=== PATIENT | female | born 1990 | race Caucasian/White ===

== ENCOUNTER → 2016-09-11 | Outpatient (CLI) | payer BC | END | disposition home or self-care (01) | LOC: C.LAB1850 07:37 | PROVIDERS: ATTEND Obstetrics & Gynecology | DX: E03.9 Hypothyroidism, unspecified (principal) ==

== ENCOUNTER → 2017-03-28 | Outpatient (CLI) | payer BC | END | disposition home or self-care (01) | LOC: C.LAB1850 07:30 | PROVIDERS: ATTEND Obstetrics & Gynecology | DX: E03.9 Hypothyroidism, unspecified (principal); N92.6 Irregular menstruation, unspecified ==

== ENCOUNTER → 2017-07-18 | Outpatient (CLI) | payer BC ==
[2017-07-18 11:36] LABS: URINE APPEARANCE CLEAR (CLEAR); URINE BILIRUBIN NEG (NEG); URINE COLOR YELLOW; URINE NITRITE NEG (NEG); URINE PH 7.5 (4.5-7.5); URINE SPECIFIC GRAVITY 1.008 (1.000-1.030); UROBILINOGEN NEG (NEG)
[2017-07-18 11:38] LABS: MANUAL MICROSCOPIC REQUIRED? NO; REVIEW REQ? NO
== END | disposition home or self-care (01) ==
LOC: C.LABSPEC 11:04
PROVIDERS: ATTEND Obstetrics & Gynecology
DX: Z34.01 Encounter for supervision of normal first pregnancy, first trimester (principal)

== ENCOUNTER → 2017-07-22 | Outpatient (CLI) | payer BC ==
[2017-07-22 16:41] LABS: BASO % 0.4 %; BASO ABS # 0.04 K/uL (0-0.2); COMPLETE YES; EOS % 1.1 %; HEMATOCRIT 37.1 % (37-47); IG% 0.2 %; LYMPH % 26.4 %; LYMPH ABS # 2.86 K/uL (1.2-3.4); MEAN CELL VOLUME 88.1 fL (80-100); MEAN CORPUSCULAR HEMOGLOBIN 31.6 pg (25-34); MEAN CORPUSCULAR HGB CONC 35.8 g/dl (32-36); MEAN PLATELET VOLUME 9.7 fL (7.4-10.4); MONO % 6.4 %; NEUT % 65.5 %; PLATELET COUNT 343 K/uL (130-400); RED BLOOD COUNT 4.21 M/uL (4.2-5.4); WHITE BLOOD COUNT 10.85 K/uL (4.8-10.8)
[2017-07-25 03:08] LABS: CHLAMYDIA TRACH RNA*** NOT DETECTED (NOT DETECTED); GC (NEIS GONORRHOEAE)RNA** NOT DETECTED (NOT DETECTED)
== END | disposition home or self-care (01) ==
LOC: C.LAB1850 15:25
PROVIDERS: ATTEND Obstetrics & Gynecology
DX: Z34.01 Encounter for supervision of normal first pregnancy, first trimester (principal); E03.9 Hypothyroidism, unspecified

== ENCOUNTER → 2017-08-14 | Outpatient (CLI) | payer OTHER | END | disposition home or self-care (01) | LOC: C.LAB1850 16:14 | PROVIDERS: ATTEND Physician Assistant | DX: E03.9 Hypothyroidism, unspecified (principal) ==

== ENCOUNTER → 2017-11-28 | Outpatient (CLI) | payer OTHER | END | disposition home or self-care (01) | LOC: C.LAB1850 13:56 | PROVIDERS: ATTEND Physician Assistant | DX: E03.9 Hypothyroidism, unspecified (principal) ==

== ENCOUNTER → 2017-12-18 | Outpatient (CLI) | payer OTHER ==
[2017-12-18 15:51] LABS: HEMATOCRIT 30.1 % (37-47); HEMOGLOBIN 10.4 g/dL (12.0-16.0)
== END | disposition home or self-care (01) ==
LOC: C.LAB1850 13:54
PROVIDERS: ATTEND Obstetrics & Gynecology
DX: Z34.03 Encounter for supervision of normal first pregnancy, third trimester (principal)

== ENCOUNTER 2018-03-05 00:11 | Inpatient (IN) | payer OTHER ==
[~2018-03-05] VITALS: Ht 160 cm; Wt 82.3 kg
[2018-03-05] MEDS ORDERED: LACTATED RINGER'S 1000ML 1,000 ML IV PRN (08:06)
[2018-03-05] MEDS ORDERED: LACTATED RINGER'S 1000ML 500 ML IV PRN ×2 (08:07→14:35)
[2018-03-05] MEDS ORDERED: OXYTOCIN 30 UNITS/500ML NSS IV PRN (08:15)
[2018-03-05 08:27] LABS: HEMATOCRIT 30.1 % (37-47); MEAN CELL VOLUME 83.6 fL (80-100); MEAN CORPUSCULAR HEMOGLOBIN 27.8 pg (25-34); MEAN CORPUSCULAR HGB CONC 33.2 g/dl (32-36); MEAN PLATELET VOLUME 9.7 fL (7.4-10.4); PLATELET COUNT 390 K/uL (130-400); RED CELL DISTRIBUTION WIDTH CV 13.4 % (11.5-14.5); RED CELL DISTRIBUTION WIDTH SD 40.9 fL (36.4-46.3); WHITE BLOOD COUNT 15.23 K/uL (4.8-10.8)
[2018-03-05] MEDS: LACTATED RINGER'S 1000ML 1,000 ML IV SCH ×3 (08:34→22:17)
[2018-03-05] MEDS ORDERED: LEVO100T PO (09:09)
[2018-03-05] MEDS ORDERED: PREN-63 (09:09)
[2018-03-05 09:15] VITALS: Ht 160 cm; Wt 82.3 kg
[2018-03-05] MEDS ORDERED: BUPIVACAINE 0.25% 30 ML VIAL ONE (13:09)
[2018-03-05] MEDS ORDERED: EpHEDrine SULFATE INJ 50 MG/ML AMP ONE (13:09)
[2018-03-05] MEDS ORDERED: FENTANYL 2MCG/ML ROPIV 1.25MG/ML 100ML BAG ONE (13:11)
[2018-03-05] MEDS ORDERED: FENTANYL CITRATE INJ 50 MCG/1 ML 2 ML VIAL ONE (13:11)
[2018-03-05] MEDS ORDERED: NALOXONE HCL INJ 1 MG in SODIUM CHLORIDE 0.9% 1000ML 1,000 ML IV PRN (14:35)
[2018-03-05] MEDS ORDERED: EpHEDrine SULFATE INJ 50 MG/ML AMP IV PRN (14:45)
[2018-03-05] MEDS ORDERED: DiphenhydrAMINE HCL 50 MG/ML VIAL IV PRN (14:45)
[2018-03-05] MEDS ORDERED: PROMETHAZINE HCL INJ 6.25 MG in SODIUM CHLORIDE 0.9% 50ML 50 ML IV PRN (14:45)
[2018-03-05] MEDS ORDERED: FENTANYL 2MCG/ML ROPIV 1.25MG/ML 100ML BAG EPI PRN (14:45)
[2018-03-05] MEDS ORDERED: ONDANSETRON INJ 2 MG/ML 2 ML VIAL IV PRN (14:45)
[2018-03-05] MEDS ORDERED: NALBUPHINE HCL INJ 10 MG/ML 1ML AMP IV PRN (14:45)
[2018-03-05] MEDS ORDERED: NALOXONE HCL INJ 0.4 MG/1 ML VIAL/CARP IV PRN (14:45)
[2018-03-05] MEDS ORDERED: LACTATED RINGER'S 1000ML 1,000 ML IV ONE (20:45)
[2018-03-05] MEDS ORDERED: CITRIC ACID/SODIUM CITRATE 15 ML UDC PO ONE (20:45)
[2018-03-05] MEDS ORDERED: CEFAZOLIN IV 2,000 MG in SYRINGE 0 ML IV SCH (21:00)
[2018-03-05] MEDS: OXYTOCIN INJ 20 UNITS in LACTATED RINGER'S 1000ML 1,000 ML IV SCH (22:17)
--- NOTE | 2018-03-05 22:18 | [facility] Post Operative Brief Note ---
Immediate Operative Summary Operative Date Mar 05, 2018. Pre-Operative Diagnosis 1. Gestational hypertension 2. Failure to Progress Post-Operative Diagnosis Same Procedure(s) Performed 1. Primary caesarean section 2. Delivery of live male child at 2152 3. Lower uterine transverse incision Surgeon Dr. Morley Tank Truck Mechanic Surgeon(s) Jennifer FRIED Estimated Blood Loss 600cc Findings Consistent with Post-Op Diagnosis Specimens 1. Placenta- hold 2. Cord blood 3. Cord blood gases Drains Bob Anesthesia Type General Complication(s) none Disposition Accompanied Pt To Recover: no Disposition: L&D
[2018-03-05] MEDS ORDERED: KETOROLAC TROMETHAMINE 30 MG/ML VIAL IV. PRN (22:30)
[2018-03-05] MEDS ORDERED: SUPERCREAM 0.870 % 15GM JAR EXT PRN (22:30)
[2018-03-05] MEDS ORDERED: MAGNESIUM HYDROXIDE SUSP 30 ML UDC PO PRN (22:30)
[2018-03-05] MEDS ORDERED: SENNA 8.6 MG TAB PO PRN (22:30)
[2018-03-05] MEDS ORDERED: MEPERIDINE HCL 50 MG/ML CARP IV PRN (22:30)
[2018-03-05] MEDS ORDERED: LANOLIN OINT EXT PRN (22:30)
[2018-03-05] MEDS ORDERED: BENZOCAINE 20% AER SPR 82.5 GM CAN EXT PRN (22:30)
[2018-03-05] MEDS ORDERED: HYDROCORTISONE ACETATE 25 MG SUPP PR PRN (22:30)
--- NOTE | 2018-03-05 22:32 | HISTORY & PHYSICAL EXAMINATION ---
DATE OF ADMISSION: 03/05/2018 HISTORY OF PRESENT ILLNESS: Kathleen has gestational hypertension. She was induced for this at 39 weeks and 3 days. Group B strep negative. Induction was begun by Dr. Thomas and she had a cervical Bob. Pitocin was started. She received an epidural and then AROM was performed. The patient had started the induction at almost 4 cm. 12 hours later, she was at a total of 5 cm. Adequate [place] units have been documented on an IUPC and recommendation for section was made. PAST MEDICAL HISTORY: She has hypothyroidism. PAST HISTORY: No previous pregnancies. MEDICATIONS: None. DRUG ALLERGIES: AMOXICILLIN. SOCIAL HISTORY: She is , nonsmoker. FAMILY HISTORY: Noncontributory. REVIEW OF SYSTEMS: Negative. PHYSICAL EXAMINATION: VITAL SIGNS: Stable. She is afebrile. CHEST: Clear. CARDIOVASCULAR: Normal rate and rhythm. No audible murmur. Pressure 144/86. ABDOMEN: heart rate tones category 1. CERVIX: 5 cm, -1. IMPRESSION AND PLAN: Recommended . Discussed risks including but not limited to the risks of bleeding, infection, injury to bowel, bladder, ureter, vessels, deep vein thrombosis and pulmonary embolus. Discussed the option of labor and the ramifications of this.
[2018-03-05 23:46] VITALS: BP 95/47; PULSE 95; TEMP 35; O2SAT 100; O2SAT 99
[2018-03-05] MEDS ORDERED: PROPOFOL IV EMULSION 10 MG/ML 100 ML VIAL ONE (23:53)
--- NOTE | 2018-03-05 23:57 | OPERATIVE REPORT ---
DATE OF OPERATION: 03/05/2018 PREOPERATIVE DIAGNOSIS: Failure to progress in labor, gestational hypertension at 39 weeks and 4 days. POSTOPERATIVE DIAGNOSIS: Failure to progress in labor, gestational hypertension at 39 weeks and 4 days. PROCEDURE: Primary low-segment transverse section. SURGEON: Contreras Morley MD FOREMAN/PILE DRIVING AND ERECTION: Munira from nursing. ESTIMATED BLOOD LOSS: 600 mL. FINDINGS: Consistent with postoperative diagnosis. SPECIMENS: Placenta, cord blood gases and cord blood. ANESTHETIC: General. DRAINS: Bob catheter. COMPLICATIONS: None. DISPOSITION: Recovery. DESCRIPTION OF PROCEDURE: Kathleen was given an epidural anesthetic earlier in the day. This was increased to allow anesthesia. Bob catheter had already been placed. She was prepped and draped in supine position with a leftward tilt and Ancef had been given preoperatively. However, the epidural was not adequate for block. We waited significant time. The patient was offered by anesthesia, spinal or general. She chose general and was put to sleep. Once the general anesthetic was on board, we made a low-transverse incision with a scalpel cutting down to the subcutaneous fat to the fascia in the midline. Fascia was then cut laterally with a curved Farah scissors. Fascia then released superiorly and inferiorly from the rectus muscles with the curved Mayos. Rectus muscle split. Peritoneal cavity entered in a superior location. Opening enlarged to allow exposure. Bladder retractor then placed. Metzenbaum was used to dissect away the bladder flap and a low-segment transverse incision was made with scalpel. Entry was done bluntly with Hemostat, and then incision extended bluntly with the vacuum filter operator's fingers. Fluid was clear. Delivered the baby by flexion of the baby's head and then pressure on the abdomen. No excessive force. No nuchal cord. Live vigorous male . Cord clamped and cut. Cord gases obtained. Cord blood obtained. IV Pitocin started. Placenta removed manually. Ensured all placenta removed with a moist lap. Uterus was exteriorized. Uterus closed in a 2-layer fashion; first running 0 Monocryl locked, second 0 Monocryl nonlocked. After generous irrigation and suction, hemostasis was excellent. We suctioned and irrigated the cul-de-sac and bladder flap regions. Uterus was placed back in the peritoneal cavity and hemostasis was excellent. Fascia closed with 0 Vicryl, subcutaneous fat irrigated and closed with 3-0 Vicryl, 4-0 subcuticular Monocryl closures and steri-striped. Sponge and instrument counts correct. I attest to the content of the Intraoperative Record and any orders documented therein. Any exception s are noted below.
[2018-03-06] VITALS (32 sets, daily range): BP systolic 102–191; BP diastolic 59–129; PULSE 72–132; TEMP 35.2–37.5; O2SAT 95–100
--- NOTE | 2018-03-06 00:21 | Anesthesia Procedure Note ---
Anesthesia Epidural Removal Nt Date & Time Mar 06, 2018 at 00:21 Vital Signs Vital Signs Past 12 Hours Date Time Temp Pulse Resp B/P (MAP) Pulse Ox O2 Delivery O2 Flow Rate FiO2 03/05/18 23:55 60 Notes Mental Status: alert / awake / arousable, participated in evaluation Nausea / Vomiting: adequately controlled Pain: adequately controlled Airway Patency, RR, SpO2: stable & adequate BP & HR: stable & adequate Hydration State: stable & adequate Neuraxial Anesthesia: was administered Anesthetic Complications: no major complications apparent, pt satisfied with anesthetic care Epidural: removed without complications, with tip intact
[2018-03-06] MEDS ORDERED: LACTATED RINGER'S 1000ML 500 ML IV PRN (00:33)
[2018-03-06] MEDS ORDERED: NALOXONE HCL INJ 0.08 MG in SYRINGE 1.8 ML IV PRN (00:33)
[2018-03-06] MEDS ORDERED: SODIUM CHLORIDE 0.9% 1000ML 1,000 ML IV PRN (00:33)
[2018-03-06] MEDS ORDERED: NALOXONE HCL INJ 1 MG in SODIUM CHLORIDE 0.9% 1000ML 1,000 ML IV PRN (00:33)
--- NOTE | 2018-03-06 00:33 | Anesthesiology Progress Note ---
Anesthesia Post Op Note Date & Time Mar 06, 2018 at 00:24 Vital Signs Vital Signs Past 12 Hours Date Time Temp Pulse Resp B/P (MAP) Pulse Ox O2 Delivery O2 Flow Rate FiO2 03/05/18 23:55 60 Notes Mental Status: see Notes Pt Amnestic to Procedure: Yes Nausea / Vomiting: adequately controlled Pain: adequately controlled Airway Patency, RR, SpO2: stable & adequate, see Notes BP & HR: stable & adequate Hydration State: stable & adequate Neuraxial Anesthesia: was administered Anesthetic Complications: Patient was taken to C section for failure to progress. Per the patient, her epidural was working well, and she had been having no pain with labor contractions. I did dose the epidural with 20cc of 2% lidocaine with epi 1: 200k and after 10 minutes, the patient felt sharp pain to surgeon test. I dosed an additional 5cc of 2% lido without epi, and after 7 minutes, again pain with test. At this point, I offered the patient the option of sitting for a spinal anesthetic or proceeding with general. She elected to proceed with general anesthesia and an uneventful rapid sequence intubation was performed with fentanyl, lidocaine, propofol, and succinylcholine. The surgery proceeded uneventfully to the of a healthy boy. However, while train of four was carefully monitored throughout, the patient never regained twitches in the facial or ulnar nerve. I suspected undiagnosed pseudocholinesterase deficiency , given the patient has never had a general anesthetic in the past. I weaned the sedation to 0.4MAC of desflurane and waited nearly two hours, with no return of train of four. At this point, the patient was transported on monitor to the ICU for continued ventilator support and sedation overnight, until complete resolution of her neuromuscular block. I have spoken personally to the savings counselor, who will manage ventilator and sedation weaning. OB is aware, and will continue to manage her post operative surgical course. I spoke extensively with the , who understands the situation, and that she may require some additional diagnostic testing for pseudocholinesterase deficiency to prevent potential similar complications in the future.
[2018-03-06] MEDS ORDERED: MoRPHine SULFATE PF 1 MG/ML 10 ML AMP/VIAL EPI PRN (00:45)
[2018-03-06] MEDS ORDERED: DiphenhydrAMINE HCL 50 MG/ML VIAL IV PRN ×2 (00:45→20:00)
[2018-03-06] MEDS ORDERED: NO NARCOTICS OR SEDATIVES SCH (00:45)
[2018-03-06] MEDS ORDERED: NALOXONE HCL 0.4 MG/1 ML VIAL/CARP IV PRN (00:45)
[2018-03-06] MEDS ORDERED: KETOROLAC TROMETHAMINE 30 MG/ML VIAL IV. PRN (00:45)
[2018-03-06] MEDS ORDERED: EpHEDrine SULFATE INJ 50 MG/ML AMP IV PRN (00:45)
[2018-03-06] MEDS ORDERED: MoRPHine SULFATE 2 MG/ML CARP IV PRN (00:45)
[2018-03-06] MEDS ORDERED: NALBUPHINE HCL INJ 10 MG/ML 1ML AMP IV PRN (00:45)
[2018-03-06] MEDS ORDERED: ONDANSETRON INJ 2 MG/ML 2 ML VIAL IV PRN ×2 (00:45→20:00)
[2018-03-06] MEDS ORDERED: PROMETHAZINE HCL INJ 6.25 MG in SODIUM CHLORIDE 0.9% 50ML 50 ML IV PRN (00:45)
[2018-03-06] MEDS ORDERED: MEPERIDINE HCL 25 MG/ML CARP IV PRN (00:45)
[2018-03-06] MEDS ORDERED: LORAZEPAM 2 MG/ML 1 ML VIAL ONE (01:26)
[2018-03-06] MEDS ORDERED: FENTANYL CITRATE INJ 50 MCG/1 ML 2 ML VIAL ONE (01:26)
[2018-03-06] MEDS ORDERED: NURSING VERBAL MED ORDER ONE (01:30)
[2018-03-06] MEDS: PROPOFOL IV EMULSION 10 MG/ML 100 ML VIAL IV PRN ×3 (01:38→05:08)
[2018-03-06] MEDS ORDERED: FENTANYL CITRATE INJ 50 MCG/1 ML 2 ML VIAL IV PRN (01:45)
[2018-03-06] MEDS ORDERED: LORAZEPAM 2 MG/ML 1 ML VIAL IV PRN (01:45)
[2018-03-06] MEDS: LACTATED RINGER'S 1000ML 1,000 ML IV SCH ×2 (03:29→11:56)
[2018-03-06] MEDS: OXYTOCIN INJ 20 UNITS in LACTATED RINGER'S 1000ML 1,000 ML IV SCH (03:29)
[2018-03-06 06:47] LABS: BASO % 0.1 %; BASO ABS # 0.02 K/uL (0-0.2); HEMATOCRIT 27.8 % (37-47); IG# 0.11 K/uL (0.00-0.02); LYMPH % 10.2 %; LYMPH ABS # 2.48 K/uL (1.2-3.4); MEAN CELL VOLUME 84.5 fL (80-100); MEAN CORPUSCULAR HEMOGLOBIN 27.4 pg (25-34); MEAN CORPUSCULAR HGB CONC 32.4 g/dl (32-36); MEAN PLATELET VOLUME 9.7 fL (7.4-10.4); MONO % 7.9 %; MONO ABS # 1.93 K/uL (0.11-0.59); NEUT % 81.3 %; NEUT ABS # 19.87 K/uL (1.4-6.5); PLATELET COUNT 358 K/uL (130-400); RED CELL DISTRIBUTION WIDTH CV 13.8 % (11.5-14.5); RED CELL DISTRIBUTION WIDTH SD 42.2 fL (36.4-46.3); WHITE BLOOD COUNT 24.41 K/uL (4.8-10.8)
--- NOTE | 2018-03-06 06:51 | DIAGNOSTIC IMAGING REPORT ---
CHEST ONE VIEW PORTABLE CLINICAL HISTORY: Respiratory failure COMPARISON STUDY: No previous studies for comparison. FINDINGS: There is an endotracheal tube 5.7 cm above the arpan. There is a nasogastric tube within the stomach. The heart is normal in size. There is no focal pulmonary consolidation. There is no failure.[ IMPRESSION: 1. Endotracheal tube 5.7 cm above the arpan. 2. No evidence of focal pulmonary consolidation Electronically signed by: Naresh Dupree M.D. 03/06/2018 6:50 AM Dictated Date/Time: 03/06/2018 6:49 AM
--- NOTE | 2018-03-06 07:11 | Progress Note ---
Subjective Mar 06, 2018. Subjective physical exam, chart review, lab review Voiding: kearney catheter in place Objective Vital Signs Date Time Temp Pulse Resp B/P (MAP) Pulse Ox O2 Delivery O2 Flow Rate FiO2 03/06/18 06:00 37.5 132 16 123/84 (97) 98 30 03/06/18 05:51 40 03/06/18 05:00 37.5 113 11 125/79 (94) 99 40 03/06/18 04:00 37.4 88 12 103/59 (74) 98 40 03/06/18 03:01 37.3 87 12 102/60 (74) 98 40 03/06/18 03:00 37.3 87 12 102/60 (74) 98 40 03/06/18 02:40 60 03/06/18 02:31 36.8 80 12 108/63 (78) 98 50 03/06/18 02:16 36.5 78 12 110/70 (83) 99 50 03/06/18 02:01 36.3 77 12 120/73 (89) 99 50 03/06/18 01:46 36.1 72 12 137/91 (106) 100 50 03/06/18 01:31 35.8 117 14 183/129 (147) 100 50 03/06/18 01:16 35.5 112 14 191/128 (149) 100 50 03/06/18 01:09 35.4 94 13 180/116 (137) 100 50 03/06/18 01:01 35.3 86 13 184/117 (139) 100 50 03/06/18 00:56 35.3 83 12 100 03/06/18 00:51 35.2 86 12 168/114 (132) 100 03/06/18 00:51 35.2 86 12 168/114 (132) 100 50 03/06/18 00:47 170/118 (135) 03/06/18 00:47 170/118 (135) 03/06/18 00:30 96 130/94 (106) 100 Mechanical Ventilator 60 18 23:55 60 03/05/18 23:46 35.0 95 20 95/47 (63) 99 Mechanical Ventilator 60 03/05/18 23:46 100 50 03/05/18 23:46 60 Physical Exam Respiratory/Chest: lungs clear Abdomen: non tender Fundus: Firm Incision Description: Clean, Dry & Intact Extremities: no calf tenderness Laboratory Results Last 24 Hours Test 03/05/18 08:17 03/06/18 06:32 White Blood Count 15.23 K/uL 24.41 K/uL Red Blood Count 3.60 M/uL 3.29 M/uL Hemoglobin 10.0 g/dL 9.0 g/dL Hematocrit 30.1 % 27.8 % Mean Corpuscular Volume 83.6 fL 84.5 fL Mean Corpuscular Hemoglobin 27.8 pg 27.4 pg Mean Corpuscular Hemoglobin Concent 33.2 g/dl 32.4 g/dl RDW Standard Deviation 40.9 fL 42.2 fL RDW Coefficient of Variation 13.4 % 13.8 % Platelet Count 390 K/uL 358 K/uL Mean Platelet Volume 9.7 fL 9.7 fL Neutrophils (%) (Auto) 81.3 % Lymphocytes (%) (Auto) 10.2 % Monocytes (%) (Auto) 7.9 % Eosinophils (%) (Auto) 0.0 % Basophils (%) (Auto) 0.1 % Neutrophils # (Auto) 19.87 K/uL Lymphocytes # (Auto) 2.48 K/uL Monocytes # (Auto) 1.93 K/uL Eosinophils # (Auto) 0.00 K/uL Basophils # (Auto) 0.02 K/uL Immature Granulocyte % (Auto) 0.5 % Immature Granulocyte # (Auto) 0.11 K/uL Assessment and Plan Post-Op Day#: 1 Continue Routine Care: Postop day #1 from section patient had a difficult time being extubated possibly related to pseudocholinesterase deficiency she is doing well when she is extubated later today we will plan on her going up to women's and children's
[2018-03-06] MEDS: SIMETHICONE 80 MG CHEW PO SCH ×4 (08:35→20:14)
[2018-03-06] MEDS: PRENATAL VITAMIN TAB PO SCH (08:35)
[2018-03-06] MEDS: DOCUSATE SODIUM 100 MG CAP PO SCH ×2 (08:35→20:14)
--- NOTE | 2018-03-06 09:06 | Critical Care Consultation ---
Critical Care Consultation Date of Consultation: Mar 06, 2018. Attending Physician: Tammi Morley M.D. Reason for Consultation: Intubation History of Present Illness Patient is a 27-year-old female who underwent section for failure to progress in labor and gestational hypertension at 39 weeks and 4 days. Patient underwent general anesthesia with endotracheal intubation and had an uneventful section. Intubation was performed with succinylcholine, she has never had general anesthetic in the past. Patient did not recover neuromuscular twitches over the course of 2 hours. The patient possibly has a pseudocholinesterase deficiency and was transferred to the ICU for continued mechanical ventilation until the patient fully recovers from neuromuscular blockade Social History Smoking Status: Never Smoker Allergies Coded Allergies: Amoxicillin (Verified Allergy, Intermediate, RASH, 03/05/18) Home Medications Scheduled Levothyroxine Sodium (Synthroid), 1 TAB PO DAILY Miscellaneous Medications Multivit-Min W/Fe-Fa (Pre- Formula) Current Inpatient Medications Current Inpatient Medications Medications (Trade) Dose Ordered Sig/Liv Route Start Time Stop Time Status Last Admin Dose Admin Oxytocin 20 units/ Lactated Ringer's 1,002 ml @ 125 mls/hr Q8H1M IV 03/05/18 22:17 04/04/18 22:16 03/06/18 03:29 125 MLS/HR Lactated Ringer's 1,000 ml @ 125 mls/hr Q8H IV 03/05/18 22:17 04/04/18 22:16 03/06/18 03:29 125 MLS/HR Ketorolac Tromethamine (Toradol Inj) 30 mg Q6H PRN IV. 03/05/18 22:30 03/10/18 22:29 Future hold Meperidine HCl (Demerol Inj) 50 mg Q4H PRN IV 03/05/18 22:30 03/19/18 22:29 Future hold Meperidine HCl (Demerol Inj) 75 mg Q4H PRN IV 03/06/18 20:00 03/20/18 19:59 Oxycodone/ Acetaminophen (Percocet 5-325mg Tab) 1 tab Q4H PRN PO 03/06/18 20:00 03/20/18 19:59 Oxycodone/ Acetaminophen (Percocet 5-325mg Tab) 2 tab Q4H PRN PO 03/06/18 20:00 03/20/18 19:59 Ibuprofen (Motrin Tab) 600 mg Q4H PRN PO 03/05/18 22:30 04/04/18 22:29 Promethazine HCl 25 mg/Sodium Chloride 51 ml @ 204 mls/hr Q4H PRN IV 03/06/18 20:00 04/05/18 19:59 Ondansetron HCl (Zofran Inj) 4 mg Q4H PRN IV 03/06/18 20:00 04/05/18 19:59 Prenat Multivit/ [place]/Iron/Folic Ac ( Vitamin Tab) 1 tab DAILY PO 03/06/18 08:00 04/05/18 07:59 03/06/18 08:35 1 TAB Bisacodyl (Dulcolax Tab) 5 mg HS ONCE PO 03/06/18 21:00 03/06/18 22:01 Bisacodyl (Dulcolax Supp) 10 mg TODAY@0700 PRN [place] 03/07/18 07:00 03/07/18 23:59 Docusate Sodium (coLACE CAP) 100 mg BID PO 03/06/18 08:00 04/05/18 07:59 03/06/18 08:35 100 MG Magnesium Hydroxide (Milk Of Magnesia Susp) 30 ml HS PRN PO 03/05/18 22:30 04/04/18 22:29 Cocaine HCl (Supercream 0.870% Cr) BID PRN EXT 03/05/18 22:30 03/19/18 22:29 Lanolin (Lanolin Oint) PRN PRN EXT 03/05/18 22:30 04/04/18 22:29 Hydrocortisone Acetate (Anusol Hc Supp) 25 mg BID PRN [place] 03/05/18 22:30 04/04/18 22:29 Benzocaine (Dermoplast Aero Spr) 1 appln PRN PRN EXT 03/05/18 22:30 04/04/18 22:29 Zolpidem Tartrate (Ambien Tab) 5 mg HSZ PRN PO 03/06/18 20:00 04/05/18 19:59 Simethicone (Mylicon Chew Tab) 80 mg QID PO 03/06/18 09:00 04/05/18 08:59 03/06/18 08:35 80 MG Diphenhydramine HCl (Benadryl Cap) 25 mg QID PRN PO 03/06/18 20:00 04/05/18 19:59 Diphenhydramine HCl (Benadryl Inj) 25 mg QID PRN IV 03/06/18 20:00 04/05/18 19:59 Senna (Senokot Tab) 17.2 mg HS PRN PO 03/05/18 22:30 04/04/18 22:29 Diphenhydramine HCl (Benadryl Inj) 25 mg Q6H PRN IV 03/06/18 00:45 03/06/18 20:00 Ondansetron HCl (Zofran Inj) 4 mg Q6H PRN IV 03/06/18 00:45 03/06/18 20:00 Promethazine HCl 6.25 mg/Sodium Chloride 50.25 ml @ 200 mls/hr Q6H PRN IV 03/06/18 00:45 03/06/18 20:00 Ketorolac Tromethamine (Toradol Inj) 30 mg Q6H PRN IV. 03/06/18 00:45 03/06/18 20:00 Meperidine HCl (Demerol Inj) 25 mg Q15M PRN IV 03/06/18 00:45 03/06/18 20:00 Miscellaneous Information (No Narcotics Or Sedatives) 1 ea UD N/A 03/06/18 00:45 03/06/18 20:00 Morphine Sulfate (MoRPHine SULFATE INJ) 4 mg Q2H PRN IV 03/06/18 00:45 03/06/18 20:00 Sodium Chloride 1,000 ml @ 15 mls/hr Q24H PRN IV 03/06/18 00:33 03/06/18 20:00 Review of Systems Unable to obtain secondary to intubation Physical Exam Date Time Temp Pulse Resp B/P (MAP) Pulse Ox O2 Delivery O2 Flow Rate FiO2 03/06/18 06:00 37.5 132 16 123/84 (97) 98 30 03/06/18 05:51 40 03/06/18 05:00 37.5 113 11 125/79 (94) 99 40 03/06/18 04:00 37.4 88 12 103/59 (74) 98 40 03/06/18 03:01 37.3 87 12 102/60 (74) 98 40 03/06/18 03:00 37.3 87 12 102/60 (74) 98 40 03/06/18 02:40 60 03/06/18 02:31 36.8 80 12 108/63 (78) 98 50 03/06/18 02:16 36.5 78 12 110/70 (83) 99 50 03/06/18 02:01 36.3 77 12 120/73 (89) 99 50 03/06/18 01:46 36.1 72 12 137/91 (106) 100 50 03/06/18 01:31 35.8 117 14 183/129 (147) 100 50 03/06/18 01:16 35.5 112 14 191/128 (149) 100 50 03/06/18 01:09 35.4 94 13 180/116 (137) 100 50 03/06/18 01:01 35.3 86 13 184/117 (139) 100 50 03/06/18 00:56 35.3 83 12 100 03/06/18 00:51 35.2 86 12 168/114 (132) 100 03/06/18 00:51 35.2 86 12 168/114 (132) 100 50 03/06/18 00:47 170/118 (135) 03/06/18 00:47 170/118 (135) 03/06/18 00:30 96 130/94 (106) 100 Mechanical Ventilator 60 03/05/18 23:55 60 03/05/18 23:46 35.0 95 20 95/47 (63) 99 Mechanical Ventilator 60 03/05/18 23:46 100 50 03/05/18 23:46 60 General Appearance: well-appearing, no apparent distress Eyes: PERRLA Neck: other (Endotracheal tube present) Respiratory: breath sounds normal, clear to auscultation Cardiovasular: normal S1S2 Abdomen: non tender Neuro: alert, oriented x 3, other (Following complex 2 step commands) Laboratory Results Last 24 Hours Test 03/06/18 06:32 White Blood Count 24.41 K/uL Red Blood Count 3.29 M/uL Hemoglobin 9.0 g/dL Hematocrit 27.8 % Mean Corpuscular Volume 84.5 fL Mean Corpuscular Hemoglobin 27.4 pg Mean Corpuscular Hemoglobin Concent 32.4 g/dl Platelet Count 358 K/uL Mean Platelet Volume 9.7 fL Neutrophils (%) (Auto) 81.3 % Lymphocytes (%) (Auto) 10.2 % Monocytes (%) (Auto) 7.9 % Eosinophils (%) (Auto) 0.0 % Basophils (%) (Auto) 0.1 % Neutrophils # (Auto) 19.87 K/uL Lymphocytes # (Auto) 2.48 K/uL Monocytes # (Auto) 1.93 K/uL Eosinophils # (Auto) 0.00 K/uL Basophils # (Auto) 0.02 K/uL RDW Standard Deviation 42.2 fL RDW Coefficient of Variation 13.8 % Immature Granulocyte % (Auto) 0.5 % Immature Granulocyte # (Auto) 0.11 K/uL Assessment & Plan Reason Critically Ill: Acute respiratory insufficiency following surgery most likely secondary to pseudocholinesterase deficiency PLAN: Neuro: Postoperative pain -Pain medications ordered -Epidural catheter removed by anesthesia Resp: Acute respiratory insufficiency: Resolved -Pseudocholinesterase deficiency testing sent to reference lab -Patient successfully liberated from ventilator this morning, adequate negative inspiratory force Fluids/Renal: Maintenance fluids per OB ID: Cefazolin given preop GI/Nutrition: Regular diet -Advance as tolerated Heme: Anemia -Continue Vascular access: Peripheral IV Code Status: Full code Discussed with OB, stable for transfer to women and children's unit
[2018-03-06] MEDS ORDERED: OXYCODONE/ACETAMINOPHEN 5-325 TAB PO PRN (20:00)
[2018-03-06] MEDS ORDERED: ZOLPIDEM TARTRATE 5 MG TAB PO PRN (20:00)
[2018-03-06] MEDS ORDERED: MEPERIDINE HCL 50 MG/ML CARP IV PRN (20:00)
[2018-03-06] MEDS ORDERED: PROMETHAZINE HCL INJ 25 MG in SODIUM CHLORIDE 0.9% 50ML 50 ML IV PRN (20:00)
[2018-03-06] MEDS ORDERED: DC INTRASPINAL MORPHINE SCH (20:00)
[2018-03-06] MEDS ORDERED: BISACODYL 5 MG TABEC PO ONE (21:00)
[2018-03-07 03:00] VITALS: BP 143/86; PULSE 96; TEMP 36.6
--- NOTE | 2018-03-07 06:44 | OB/GYN Progress Note ---
COAL SCREENER Progress Note Date of Service Mar 07, 2018. Subjective conversation w/ patient Ambulation: ambulating normally Voiding: no voiding problems Passing Gas: Yes Diet Tolerance: Clear Liquids (Had crackers last night and anticipates eating a regular diet today) Lochia: Moderate Feeding Type: Bottle Feeding Pain: Improving Review of Systems Constitutional: No fever, No chills Respiratory: No shortness of breath Cardiac: No chest pain, No palpitations Female : No dysuria Objective Vital Signs Date Time Temp Pulse Resp B/P (MAP) Pulse Ox O2 Delivery O2 Flow Rate FiO2 03/07/18 03:00 36.6 96 14 143/86 (105) Room Air 03/06/18 23:05 36.5 105 16 158/90 (112) 98 Room Air 03/06/18 20:20 36.7 93 18 144/88 (106) 100 Room Air 03/06/18 20:20 100 Room Air 03/06/18 19:15 18 98 03/06/18 17:15 18 95 03/06/18 16:15 18 97 03/06/18 15:45 36.8 90 18 144/92 (109) 97 Room Air 03/06/18 15:45 97 Room Air 03/06/18 15:15 16 96 03/06/18 14:03 16 97 03/06/18 13:30 36.6 97 16 137/89 (105) 97 Room Air 03/06/18 12:51 16 97 03/06/18 11:50 16 96 03/06/18 10:50 36.6 92 16 145/88 (107) 96 Room Air 03/06/18 10:50 96 Room Air 03/06/18 10:50 16 96 03/06/18 10:41 37.1 101 20 95 03/06/18 10:00 101 20 137/95 (109) 95 Room Air 03/06/18 08:00 100 Nasal Cannula 2.0 03/06/18 08:00 37.1 105 13 138/83 (101) 100 Nasal Cannula 2.0 03/06/18 07:19 30 03/06/18 07:15 30 Physical Exam General Appearance: WELL-APPEARING, NO APPARENT DISTRESS Respiratory/Chest: lungs clear, normal breath sounds, no respiratory distress Cardiovascular: regular rate, rhythm, no murmur Abdomen: soft Fundus: Firm (at umbilicus) Incision Description: Clean, Dry & Intact Laboratory Results Last 24 Hours Test 03/07/18 06:00 Assessment and Plan Post-Op Day Number: 2 Continue Routine Care: Analgesia PRN Escalate diet Ambulation encouraged Resident Physician Supervision Note: I interviewed and examined the patient. Discussed with Dr. Stern and agree with findings and plan as documented in the note. Any exceptions or clarifications are listed here: Patient recovered from GETA after discovery of likely pseudocholinesterase deficiency with delayed awakening post operatively. Now feels "great," managing as routine post- patient. Bottle feeding and happy with that. Documented By: Eve Juarez
[2018-03-07] MEDS ORDERED: BISACODYL 10 MG SUPP PR PRN (07:00)
[2018-03-07 07:09] LABS: HEMATOCRIT 28.9 % (37-47); HEMOGLOBIN 9.5 g/dL (12.0-16.0)
[2018-03-07 08:00] VITALS: BP 154/99; PULSE 80; TEMP 36.8; O2SAT 98
[2018-03-07] MEDS: DOCUSATE SODIUM 100 MG CAP PO SCH ×2 (08:13→19:28)
[2018-03-07] MEDS: PRENATAL VITAMIN TAB PO SCH (08:13)
[2018-03-07] MEDS: SIMETHICONE 80 MG CHEW PO SCH ×4 (08:13→19:29)
[2018-03-07] MEDS: LEVOTHYROXINE 100 MCG TAB PO SCH (10:00)
[2018-03-07 15:30] VITALS: BP 153/80; PULSE 80; TEMP 36.8; O2SAT 99
[2018-03-07] MEDS: IBUPROFEN 600 MG TAB PO PRN ×2 (16:42→22:16)
[2018-03-07] MEDS: OXYCODONE/ACETAMINOPHEN 5-325 TAB PO PRN ×2 (16:42→22:15)
[2018-03-07] MEDS ORDERED: OXYC-57 PO (19:48)
[2018-03-07] MEDS ORDERED: MTR600X PO (19:48)
--- NOTE | 2018-03-07 19:51 | Discharge Instructions ---
Discharge Instructions Date of Service Mar 07, 2018. Admission Reason for Admission: Induction Discharge Discharge Diagnosis / Problem: after surgery Discharge Goals Goal(s): Routine recovery after Medications Continue Dispensed Medications: supercream, dermaplast, tucks, lansinoh Activity Recommendations Activity Limitations: as noted below . Instructions / Follow-Up Instructions / Follow-Up ACTIVITY RECOMMENDATIONS: * Gradual return to full activity over the next 2-3 weeks. * No lifting - nothing heavier than baby over the next 2-3 weeks. * Do not engage in vigorous exercise, sexual activity or sports until cleared by your physician. * Do not drive or operate any motorized equipment until cleared by your physician. * You may shower/bathe daily. MEDICATIONS: For discomfort or pain, you may use Acetaminophen (Tylenol), Ibuprofen (Advil), or Naproxen (Aleve) following the package directions. For constipation you may use Colace following the package directions. BREAST CARE: If you are not breast feeding: * Wear a supportive bra 24 hours a day for one to two weeks. * Avoid stimulating your breasts and nipples as much as possible during the first few weeks after delivery. * When taking a shower, have the warm water hit your back, not breasts. * When your breasts feel full, apply ice packs. Usually three to four times a day helps ease the discomfort. * Take a mild pain medication (Tylenol / Motrin) when you are uncomfortable. If breast feeding: * Use breast milk to lubricate nipples. Lansinoh cream may be used for sore nipples. You do not need to remove cream prior to breast feeding. If using a different brand of cream, check the label for directions regarding removal of cream prior to nursing. * Wear a supportive bra. * If having problems with breasts or breast feeding, call a end user consultant or your health care provider. SPECIAL CARE INSTRUCTIONS: When you are discharged from the hospital, it is important for you to follow the instructions listed below: * During the first week at home, you should be able to care for yourself and your baby. In addition, the usual light household activities are encouraged. * Limit your activities to the way you feel. Do not try to clean the house or move furniture. Be sensible. * If you actively engage in sports and have done so up until the time of your delivery, you may resume these activities as soon as you feel able. This may take up to one month or even longer. Use good judgment. * Continue to take your vitamins for at least six weeks after the of your baby. * Your diet need not be limited unless you were on a special diet before your delivery. Breast-feeding mothers need around 2500 calories per day and at least 64-80 ounces of fluid per day (8 to 10 glasses). * You should eat foods from the four major food groups. Crash diets or fad diets are to be avoided. Eating lean meats, fresh fruits and vegetables, low-fat dairy products, high fiber foods and a regular exercise program, will help you get back to your pre- weight without putting your health at risk. * Constipation is sometimes a problem after delivery. Take a mild laxative as needed. If breast feeding, Milk of Magnesia is acceptable to use. You may use a suppository or Fleets enema. * A daily shower or tub bath is suggested. Wash incision daily with warm soapy water and pat dry. It doesn't need to be covered unless drainage is present. * A bloody vaginal discharge will usually continue until around four weeks . A small amount of bleeding may continue for as long as six weeks. Vaginal discharge changes from the bright red bleeding after delivery to pink then brownish and finally yellowish-pink before becoming white and disappearing. * Bleeding may increase with activity. Your first period may come in 4-8 weeks. If you are breast feeding, your period may be delayed even longer. * [place] (sex) can begin whenever both you and your partner feel comfortable and do not have any form of genital infection. It is recommended that you wait at least six weeks for internal and external healing to occur. If you have questions, please talk to your health care practitioner. A condom should be used to prevent infection and . * Foreplay, gentle intercourse and lubrication is very important the first several times to prevent pain. A water-based lubricant such as K-Y jelly or Astroglide may be used. * If you have RH negative blood and your baby is RH positive, you will receive RHOGAM by injection prior to discharge. The nurse will give you a card to keep with you that has the date and place that you received RHOGAM after delivery. * During your care, you had a Rubella screen done to check for the presence of rubella antibodies in your blood. If your test was negative, you will receive a Rubella vaccine prior to discharge. This vaccine may cause a fever, soreness at the injection site and flu-like symptoms. If these symptoms persist, notify your health care practitioner. is not advised for one month after a Rubella vaccine. * Verbalizes understanding of car seat law as reviewed with patient nursing. * Car Seat hand-out given and reviewed with patient by nursing. * Shaken baby information reviewed with patient by nursing. Call you doctor if: * Heavy bleeding (saturating several pads an hour) or passing clots the size of your fist. * A fever >101 degrees F (38.3 degrees C) on two occasions four hours apart and /or chills. * Unusual pain in the pelvic or vaginal areas. * Call the doctor for any increased redness, drainage or swelling around the incision and any pain unrelieved by prescribed pain medication. * "Baby Blues" lasting longer than two weeks. If you have any questions or concerns, call your health care practitioner at . FOLLOW UP VISIT: * Please call the office at to schedule a 6 week examination. It is important you keep this appointment. It is important for you to make arrangements for either yearly or twice yearly check-ups thereafter. Current Hospital Diet Patient's current hospital diet: Regular OB Diet Discharge Diet Recommended Diet: Regular Diet Procedures Procedures Performed: 1. Primary caesarean section 2. Delivery of live male child at 2152 3. Lower uterine transverse incision Pending Studies Studies pending at discharge: no Medical Emergencies . Who to Call and When: Medical Emergencies: If at any time you feel your situation is an emergency, please call [phone] immediately. . Non-Emergent Contact Non-Emergency issues call your: Floor Grinder . . "Provider Documentation" section prepared by Mariel Mosher. . [place] Drug Monitoring Program Search Results: patient reviewed within database, no issues identified
[2018-03-07 20:00] VITALS: BP 153/93; PULSE 84; TEMP 36.8; O2SAT 98
[2018-03-08 00:08] VITALS: BP 137/53; PULSE 78; TEMP 36.5; O2SAT 98
[2018-03-08 00:10] VITALS: O2SAT 98
[2018-03-08] MEDS: OXYCODONE/ACETAMINOPHEN 5-325 TAB PO PRN (05:07)
[2018-03-08] MEDS: IBUPROFEN 600 MG TAB PO PRN (05:07)
[2018-03-08] MEDS: LEVOTHYROXINE 100 MCG TAB PO SCH (07:34)
--- NOTE | 2018-03-08 07:52 | Progress Note ---
Subjective Mar 08, 2018. Subjective conversation w/ patient, physical exam Ambulation: ambulating normally Voiding: no voiding problems Diet Tolerance: Regular Diet Lochia: Small Feeding Type: Bottle Feeding Pain: denies pain issues. Comment: no headache, visual change, no ruq pain Objective Vital Signs Date Time Temp Pulse Resp B/P (MAP) Pulse Ox O2 Delivery O2 Flow Rate FiO2 03/08/18 00:10 98 Room Air 03/08/18 00:08 36.5 78 20 137/53 (81) 98 Room Air 03/07/18 20:00 98 Room Air 03/07/18 20:00 36.8 84 20 153/93 (113) 98 Room Air 03/07/18 15:30 99 Room Air 03/07/18 15:30 36.8 80 18 153/80 (104) 99 Room Air 03/07/18 08:00 36.8 80 18 154/99 (117) 98 Room Air 03/07/18 08:00 98 Room Air Physical Exam General Appearance: WELL-APPEARING, WD/WN, NO APPARENT DISTRESS Respiratory/Chest: lungs clear Cardiovascular: regular rate, rhythm Abdomen: non tender, soft Fundus: Firm, Relation to Umbilicus (2 down) Incision Description: Clean, Dry & Intact (steris) Extremities: non-tender Laboratory Results Last 24 Hours Test 03/08/18 06:06 Assessment and Plan Post-Op Day#: 3 Continue Routine Care: stable, routine care. bps are borderline but not persistently high enough to rec medication, instead rec bp check in one wk. will d/c home, instructions reviewed. pp care reviewed. s/sx to call with are reviewed.
[2018-03-08 08:00] VITALS: BP 148/100; PULSE 60; TEMP 36.5; O2SAT 98
[2018-03-08 09:00] VITALS: BP 152/89
[2018-03-08] MEDS: DOCUSATE SODIUM 100 MG CAP PO SCH (09:10)
[2018-03-08] MEDS: PRENATAL VITAMIN TAB PO SCH (09:10)
[2018-03-08] MEDS: SIMETHICONE 80 MG CHEW PO SCH (09:11)
[2018-03-08 11:18] VITALS: BP_DIAS 89; PULSE 60; TEMP 36.5
--- NOTE | 2018-03-11 08:14 | DISCHARGE SUMMARY ---
Kathleen had a section on 03/05/2018. This was for failure to progress and also maternal request. The patient had been in labor and this was an induction for gestational hypertension. Her labor had not progressed in 6 hours and I offered to continue further, but she requested . Operative note has been dictated and was uncomplicated. Course in hospital was uncomplicated. On 03/08/2018 which was day 3, she was assessed by Dr. Mosher. At that time she was doing well, tolerating an oral diet, minimal bleeding and no extremity pain. PHYSICAL EXAMINATION: VITAL SIGNS: Stable. She was afebrile. ABDOMEN: Incision clean, dry and intact. EXTREMITIES: Negative. IMPRESSION AND PLAN: Postop day #3, discharged home. Told to follow up in the office. Given pain medication. Instructions reviewed.
== END 2018-03-08 13:00 | disposition home or self-care (01) | DRG 765 ==
LOC: C.LD 08:04 → ENRESERV 22:53 → C.MSICU 03-06 00:29 → ENRESERV 03-06 09:17 → C.OBG 03-06 10:51
PROVIDERS: ADMIT Obstetrics & Gynecology; ATTEND Obstetrics & Gynecology
PROC: 5A1935Z Respiratory Ventilation, Less than 24 Consecutive Hours (ICD-10-PCS; 2018-03-05)
PROC: 10D00Z1 Extraction of Products of Conception, Low, Open Approach (ICD-10-PCS; principal; 2018-03-05 20:42)
PROC: 3E033VJ Introduction of Other Hormone into Peripheral Vein, Percutaneous Approach (ICD-10-PCS; principal; 2018-03-05 20:42)
DX: O13.4 Gestational [pregnancy-induced] hypertension without significant proteinuria, complicating childbirth (principal); J95.2 Acute pulmonary insufficiency following nonthoracic surgery; O99.52 Diseases of the respiratory system complicating childbirth; O99.284 Endocrine, nutritional and metabolic diseases complicating childbirth; E88.09 Other disorders of plasma-protein metabolism, not elsewhere classified; O66.40 Failed trial of labor, unspecified; E03.9 Hypothyroidism, unspecified; Z3A.39 39 weeks gestation of pregnancy; Z37.0 Single live birth; Z79.899 Other long term (current) drug therapy; Z88.0 Allergy status to penicillin

== ENCOUNTER 2020-06-27 19:24 | Inpatient (IN) ==
--- NOTE | 2020-06-27 20:12 | History & Physical Report ---
Date of Service June 27, 2020 Assessment & Plan (1) Previous delivery affecting , antepartum: -Sterile speculum examination is confirmed rupture of membranes -The patient is in active labor. -The patient wishes to proceed with a repeat section. -The risks, benefits, and alternatives to the surgery have been discussed. While the benefits will be delivery of the infant, the risks of bleeding, infection, inadvertent injury to bowel or bladder, readmission or reoperation. -Permit has been signed -Pediatrics has been notified (2) Admission for sterilization: -Patient desires permanent surgical sterilization -Risk benefits and alternatives discussed, risks including failure at 1 to 3%, and regret -Permit has been signed and she wishes to proceed (3) Pseudocholinesterase deficiency: -Anesthesia made aware of the deficiency History of Present Illness Chief Complaint: Ruptured membranes Primary Care Provider: Tavon Bowman MD The patient is a 30-year-old 2 para 1 with an EDC of 04 July at 39 weeks gestational age who presented to labor and delivery with spontaneous rupture membranes. Patient states that she has been having contractions for the last 24 hours. They have been increasing in intensity. Approximately 2 hours the patient felt pressure and had spontaneous rupture of clear fluids. The patient had been scheduled for repeat section next week. Her for section was for failure to progressed. During that section the patient had postoperative paralysis that was felt to be secondary to pseudocholinesterase deficiency. The patient also has requested permanent surgical sterilization. She has been counseled during the about the reversible nature of this. The remainder of her course has been unremarkable. Her blood type is A+, antibody negative, rubella immune, hepatitis B negative, she had a normal 1 hour Glucola x2, and a negative third trimester beta strep culture. Allergies Allergy/AdvReac Type Severity Reaction Status Date / Time amoxicillin Allergy Intermediate rash Verified 06/26/20 14:55 succinylcholine AdvReac Intermediate suspected Verified 06/26/20 14:53 pseudocholinesterase deficiency (03/2018 ) Home Medications Medication Instructions Recorded Confirmed Type levothyroxine 112 mcg PO QAM 06/20/20 06/27/20 History Patient History Medical History (Updated 06/27/20 @ 20:14 by Shreyas Haider Jr, MD, FACOG) Encounter for anatomic survey History of pre-eclampsia Hypothyroidism Oligomenorrhea Pseudocholinesterase deficiency : 03/05/18 (failure to progress): Per anesthesia progress note: "Per the patient, her epidural was working well, and she had been having no pain with labor contractions. I did dose the epidural with 20cc of 2% lidocaine with epi 1:200k and after 10 minutes, the patient felt sharp pain to surgeon test. I dosed an additional 5cc of 2% lido without epi, and after 7 minutes, again pain with test. At this point, I offered the patient the option of sitting for a spinal anesthetic or proceeding with general. She elected to proceed with general anesthesia and an uneventful rapid sequence intubation was performed with fentanyl, lidocaine, propofol, and succinylcholine. The surgery proceeded uneventfully to the of a healthy boy. However, while train of four was carefully monitored throughout, the patient never regained twitches in the facial or ulnar nerve. I suspected undiagnosed pseudocholinesterase deficiency, given the patient has never had a general anesthetic in the past. I weaned the sedation to 0.4MAC of desflurane and waited nearly two hours, with no return of train of four. At this point, the patient was transported on monitor to the ICU for continued ventilator support and sedation overnight, until complete resolution of her neuromuscular block. I have spoken personally to the watch caser, who will manage ventilator and sedation weaning. OB is aware, and will continue to manage her post operative surgical course." Liberated from ventilator POD#1. Grade view 1, Welch #2, ETT 7 at [facility]. Surgical History (Updated 06/27/20 @ 20:08 by Shreyas Haider Jr, MD, FACOG) H/O colposcopy with cervical biopsy CINII H/O wisdom tooth extraction Hx of section Family History (Updated 09/26/19 @ 08:20 by Hailey Salvador) Grandfather (Maternal) Diabetes Hypertension Grandfather (Maternal) No problems noted. 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 Other Information That Helps Us Care for You: No Feels Safe at Home: Yes Safety Concerns: Feels Safe At This Time Assistive Devices: Glasses Physical Exam Constitutional: WD/WN, vitals as above Respiratory: Auscultation: lungs clear to auscultation bilaterally Cardiovascular: RRR, no murmur, no edema Extremities: no calf tenderness Gastrointestinal (Abdomen): Gravid, vertex, positive heart tones, positive palpable contractions 3 minutes moderate intensity, estimated weight of 7 pounds Genitourinary: Sterile speculum examination: Gross rupture, cervix 4 cm 100% effaced -1 station Results & Data ([facility]) Vital Signs (Past 12 Hours) Vital Signs Temp Pulse Resp BP 06/27/20 19:39 120 H 125/82 06/27/20 19:36 98.2 F 20 06/27/20 19:34 98.2 F 20 Coding Level of Care Code None Diagnoses Previous delivery affecting , antepartum O34.219 Admission for sterilization Z30.2 Pseudocholinesterase deficiency E88.09
[2020-06-27] MEDS ORDERED: LACTATED RINGER'S 1,000 ML IV SCH ×3 (20:15→22:34)
--- NOTE | 2020-06-27 20:28 | Anesthesiology Consultation ---
Date of Service June 27, 2020 Assessment & Plan Chart Review Chart Review: Acceptable Risk for Surgery and Patient NOT seen in Pre Admission Testing Consults Requested none ASA ASA2E Proposed Anesthesia Anesthesia Type: Spinal Risk / Benefits Reviewed With: PT / POA / Parent / Guardian, Accepts Plan and Informed Consent Obtained Additional Comments: covid test negative History Height/Weight Height: 5 ft 3 in Weight: 76.657 kg Allergies Allergy/AdvReac Type Severity Reaction Status Date / Time amoxicillin Allergy Intermediate rash Verified 06/26/20 14:55 succinylcholine AdvReac Intermediate suspected Verified 06/26/20 14:53 pseudocholinesterase deficiency (03/2018 ) Medications Home Medications Medication Instructions Recorded Confirmed Last Taken levothyroxine 112 mcg PO QAM 06/20/20 06/27/20 06/27/20 06:00 NPO Date Last Intake of Fluids: 06/27/20 Time Last Intake of Fluids: 14:00 Date Last Intake of Solids: 06/27/20 Time Last Intake of Solids: 14:00 Past Medical History Medical History Encounter for anatomic survey History of pre-eclampsia Hypothyroidism Oligomenorrhea Pseudocholinesterase deficiency : 03/05/18 (failure to progress): Per anesthesia progress note: "Per the patient, her epidural was working well, and she had been having no pain with labor contractions. I did dose the epidural with 20cc of 2% lidocaine with epi 1:200k and after 10 minutes, the patient felt sharp pain to surgeon test. I dosed an additional 5cc of 2% lido without epi, and after 7 minutes, again pain with test. At this point, I offered the patient the option of sitting for a spinal anesthetic or proceeding with general. She elected to proceed with general anesthesia and an uneventful rapid sequence intubation was performed with fentanyl, lidocaine, propofol, and succinylcholine. The surgery proceeded uneventfully to the of a healthy boy. However, while train of four was carefully monitored throughout, the patient never regained twitches in the facial or ulnar nerve. I suspected undiagnosed pseudocholinesterase deficiency, given the patient has never had a general anesthetic in the past. I weaned the sedation to 0.4MAC of desflurane and waited nearly two hours, with no return of train of four. At this point, the patient was transported on monitor to the ICU for continued ventilator support and sedation overnight, until complete resolution of her neuromuscular block. I have spoken personally to the research chemical engineer, who will manage ventilator and sedation weaning. OB is aware, and will continue to manage her post operative surgical course." Liberated from ventilator POD#1. Grade view 1, Welch #2, ETT 7 at [facility]. Exercise / Class Metabolic Activity II 4-5 Yardwork/Stairs/Walk up hill Past Family History Family History Grandfather (Maternal) Diabetes Hypertension Grandfather (Maternal) No problems noted. Grandmother (Maternal) Hypertension Past Surgical History Surgical History H/O colposcopy with cervical biopsy CINII H/O wisdom tooth extraction Hx of section Past Anesthesia History No Hx of Anesthesia Complications and No Family Hx of Anesthesia Complications History of PONV No Hx of PONV and No Hx of Motion Sickness Social History Smoking Status: Never smoker Hx Alcohol Use: No Hx Substance Use: No substance use type: does not use Physical Exam Vital Signs Last Vital Signs Temp 36.8 C 06/27/20 19:36 Pulse 120 H 06/27/20 19:39 Resp 20 06/27/20 19:36 BP 125/82 06/27/20 19:39 Constitutional + obese ENMT Mouth: no dentition abnormality Thyromental Distance: < 3.5 Finger Breadths Mallampati Class: II Neck normal visual inspection and trachea midline; neck extension not limited Respiratory normal respiratory effort, lungs clear to auscultation normal respiratory effort Auscultation: lungs clear to auscultation bilaterally Cardiovascular Rate/Rhythm: regular rate and regular rhythm Heart Sounds: no murmur Vessels: no carotid bruit Musculoskeletal Spine: lumbar spine normal to inspection Neurologic moves all extremities Motor/Sensory: no sensory deficit Psychiatric Orientation: alert and oriented x 3
[2020-06-27] MEDS ORDERED: CITRIC ACID/SODIUM CITRATE 15 ML UDC PO ONE (20:30)
[2020-06-27] MEDS ORDERED: ceFAZolin 2000MG 2,000 MG/15 ML SYR IV SCH (20:30)
[2020-06-27] MEDS ORDERED: OXYTOCIN 10 UNITS/ML VIAL ONE ×2 (20:38→21:54)
[2020-06-27] MEDS ORDERED: fentaNYL citrate 100 MCG/2 ML VIAL ONE (20:38)
[2020-06-27] MEDS ORDERED: PHENYLEPHRINE 100MCG/ML 5ML SYR ONE (20:38)
[2020-06-27] MEDS ORDERED: MoRPHine SULFATE PF 1 MG/ML 10 ML AMP/VIAL ONE (20:39)
[2020-06-27] MEDS ORDERED: PHENYLEPHRINE HCL 10 MG/ML VIAL ONE (20:55)
[2020-06-27 21:01] LABS: Hematocrit (blood only) 31.9 % (37-47); Hemoglobin 10.5 g/dL (12.0-16.0); Mean Corpuscular Hemoglobin 29.2 pg (25-34); Mean Corpuscular Hgb Conc 32.9 g/dL (32-36); Mean Corpuscular Volume 88.6 fL (80-100); Mean Platelet Volume 10.4 fL (7.4-10.4); Platelet Count 387 K/uL (130-400); RDW Coefficient of Variation 13.5 % (11.5-14.5); RDW Standard Deviation 43.4 fL (36.4-46.3); White Blood Count 16.38 K/uL (4.8-10.8)
--- NOTE | 2020-06-27 22:07 | Post Operative Brief Note ---
PG Immediate Post Op with CF Date of Surgery June 27, 2020 Pre & Post Diagnosis Operation Date: 06/27/20 20:00 Pre-Op Diagnosis: Repeat Section, rupture of membranes, laboring, desire for sterilzation Post-Op Diagnosis: Repeat Section, rupture of membranes, laboring, Bilateral tubal I identified the patient and participated in the time-out.: Yes Procedure Operation Date: 06/27/20 20:00 <No data on this case meets the specified criteria> Surgeon Shreyas Haider Jr, MD, FACOG High School Math Tutor Yulia Estimated Blood Loss 800 Findings See Below (viable male infant, Apgars 8/9; weight 8lbs 3 ozs, gasses pending, normal appearing tubes and ovaries bilaterally, bilateral tubal ligation)
[2020-06-27] MEDS ORDERED: ONDANSETRON INJ 2 MG/ML 2 ML VIAL IV PRN (22:16)
[2020-06-27] MEDS ORDERED: LACTATED RINGER'S 500 ML IV PRN (22:16)
[2020-06-27] MEDS ORDERED: NALOXONE HCL 0.4 MG/1 ML VIAL/CARP IV PRN (22:16)
[2020-06-27] MEDS ORDERED: MoRPHine SULFATE PF 1 MG/ML 10 ML AMP/VIAL INT SPINAL ONE (22:16)
[2020-06-27] MEDS ORDERED: NALOXONE HCL 0.08 MG in SYRINGE 1.8 ML IV PRN (22:16)
[2020-06-27] MEDS ORDERED: KETOROLAC 30 MG/ML VIAL IV PRN (22:16)
[2020-06-27] MEDS ORDERED: diphenhydrAMINE 50 MG/ML VIAL IV PRN (22:16)
[2020-06-27] MEDS ORDERED: ePHEDrine sulfate 50 MG/ML AMP IV PRN (22:16)
[2020-06-27] MEDS ORDERED: PROMETHAZINE HCL 25 MG in SODIUM CHLORIDE 0.9% 50 ML IV PRN (22:16)
[2020-06-27] MEDS ORDERED: NALOXONE HCL 1 MG in SODIUM CHLORIDE 0.9% 1000ML 1,000 ML IV PRN (22:16)
[2020-06-27] MEDS ORDERED: SODIUM CHLORIDE 0.9% 1000ML 1,000 ML IV SCH (22:30)
[2020-06-27] MEDS ORDERED: NO NARCOTICS OR SEDATIVES SCH (22:30)
[2020-06-27] MEDS ORDERED: BENZOCAINE 20% AER SPR 82.5 GM CAN EXT PRN (22:34)
[2020-06-27] MEDS ORDERED: HYDROCORTISONE ACETATE 25 MG SUPP PR PRN (22:34)
[2020-06-27] MEDS ORDERED: SUPERCREAM 0.870% 15 GM JAR EXT PRN (22:34)
[2020-06-27] MEDS ORDERED: SENNA 8.6 MG TAB PO PRN (22:34)
[2020-06-27] MEDS ORDERED: MAGNESIUM HYDROXIDE SUSP 30 ML UDC PO PRN (22:34)
[2020-06-27] MEDS ORDERED: DIPHTHERIA/TETANUS/PERTUSSIS 0.5 ML SYR/VIAL IM ONE (22:34)
[2020-06-27] MEDS ORDERED: IBUPROFEN 600 MG TAB PO PRN (22:34)
--- NOTE | 2020-06-27 22:50 | Anesthesiology Progress Note ---
Date of Service June 27, 2020 Anesthesia Post Procedure Vital Signs Vital Signs: Temp Pulse Resp BP Pulse Ox 06/27/20 22:46 90 100 06/27/20 22:45 90 20 100 06/27/20 22:44 83 121/73 06/27/20 22:41 79 100 06/27/20 22:37 83 121/65 06/27/20 22:36 82 100 06/27/20 22:35 79 20 100 06/27/20 22:31 77 100 06/27/20 22:30 18 06/27/20 22:26 84 121/61 100 06/27/20 22:25 79 20 100 06/27/20 22:21 96 H 100 06/27/20 22:17 99 H 124/63 06/27/20 22:16 101 H 100 06/27/20 22:15 36.2 C L 06/27/20 19:39 120 H 125/82 06/27/20 19:36 36.8 C 20 06/27/20 19:34 36.8 C 20 Transfer of Care Handoff Completed per policy Notes Mental Status: alert / awake / arousable Patient Amnestic to Procedure: Yes Nausea / Vomiting: adequately controlled Pain: adequately controlled Airway Patency, RR, SpO2: stable & adequate BP & HR: stable & adequate Hydration State: stable & adequate Neuraxial Anesthesia: was administered and sensory block is resolving Anesthetic Complications: no major complications apparent
[2020-06-27 23:02] LABS: Base Excess Cord Arterial Bld -3.2 mEq/L (-9-1.8); Base Excess Cord Venous Blood -3.3 mEq/L (-7.7-1.9); CO2 Cord Arterial Blood 54 mmHg (39.1-73.5); Cord Venous Blood HCO3 23 mmol/L (18.4-26.8); Cord Venous Blood PCO2 43 mmHg (30.4-57.2); Cord Venous Blood PO2 23 mmHg (14.1-43.3); Cord Venous Blood pH 7.34 (7.20-7.44); HCO3 Cord Arterial Blood 25 mmol/L (19.7-28.5); PO2 Cord Arterial Blood 14 mmHg (4.1-31.7); pH Cord Arterial Blood 7.27 (7.1-7.38)
[2020-06-27 23:03] LABS: O2 Saturation Cord Venous Bld < 60.0 % (<68); Oxygen Sat Cord Arterial Blood < 60.0 % (<60)
[2020-06-28] MEDS: OXYTOCIN 20 UNITS in LACTATED RINGER'S 1,000 ML IV SCH ×2 (00:22→08:30)
--- NOTE | 2020-06-28 00:24 | Operative Report (OR) ---
DATE OF OPERATION: 06/27/2020 PREOPERATIVE DIAGNOSES: 1. Term . 2. Previous section. 3. Active labor. 4. Desired permanent surgical sterilization. POSTOPERATIVE DIAGNOSES: 1. Term . 2. Previous section. 3. Active labor. 4. Desired permanent surgical sterilization. PROCEDURES PERFORMED: 1. Repeat low cervical transverse section. 2. Bilateral tubal ligation. SURGEON: Shreyas Haider MD CONTROL ROOM TECHNICIAN: Miriam Bender MD ANESTHESIA: Spinal. FINDINGS: Viable male infant with Apgars of 8 and 9 and weight of 8 pounds 3 ounces. Arterial and venous cord gases are pending. Normal-appearing tubes and ovaries bilaterally. Bilateral segment of fallopian tube removed. PROCEDURE IN DETAIL: The patient was taken to the operating room and after spinal anesthesia, was placed in supine position and draped and prepped in the usual fashion. Old surgical Pfannenstiel scar was excised. The underlying subcutaneous tissue was dissected down to the ventral abdominal fascia, which was nicked and opened in a horizontal manner. Preperitoneal fascia was dissected away until the peritoneal cavity was entered and opened in a vertical manner. Bladder blade was placed. Peritoneum overlying the uterus was elevated, opened in a semilunar fashion, the inferior margin of which was taken down creating the bladder flap. The uterus was entered sharply and extended in a semilunar fashion manually. Viable male infant was delivered. Cord was clamped and cut and the baby was passed off to pediatrics who was in attendance for the delivery. Cord gases and cord blood samples were obtained. Placenta was delivered spontaneously and the uterus was exteriorized. The uterine cavity was wiped clean of any residual blood tissue and/or clot. The uterine incision was then closed with 2 layers of 4-0 Vicryl, the first a running locking stitch, the second an imbricating stitch. Hemostasis was achieved. At this time, direction was turned to the fallopian tubes. The right fallopian tube was isolated followed to the fimbriated end, a segment of which was elevated, doubly ligated with 0 plain suture, cut and removed from the field. In a similar fashion, the left fallopian tube was followed to the fimbriated end, a segment of which was elevated, doubly ligated with 0 plain suture, cut and removed from the field. Hemostasis was present. The uterus was then returned to the pelvic cavity. The pericolic gutters were cleared bilaterally of any blood tissue and/or clot. Both tubal pedicles were inspected for hemostasis, which was present. The uterine incision was inspected for hemostasis, which was present. Sponge and needle count was correct. The rectus muscle was then plicated in the midline with a running 2-0 Vicryl stitch. The fascia was closed laterally with a running 0 Vicryl suture. The subcutaneous tissue was irrigated with warm saline and the skin incision was closed with a 4-0 Monocryl subcuticular suture. Sterile dressing was applied. The patient was taken to the recovery room in satisfactory condition. I attest to the content of the Intraoperative Record and any orders documented therein. Any exceptions are noted below. SUSANA
[2020-06-28] MEDS ORDERED: CITRIC ACID/SODIUM CITRATE 15 ML UDC PO SCH (06:00)
[2020-06-28] MEDS: LEVOTHYROXINE SODIUM 112 MCG TABLET PO SCH (06:05)
[2020-06-28 06:39] LABS: Hematocrit (blood only) 31.7 % (37-47); Hemoglobin 10.4 g/dL (12.0-16.0); Mean Corpuscular Hemoglobin 28.9 pg (25-34); Mean Corpuscular Hgb Conc 32.8 g/dL (32-36); Mean Corpuscular Volume 88.1 fL (80-100); Mean Platelet Volume 10.2 fL (7.4-10.4); Platelet Count 357 K/uL (130-400); RDW Coefficient of Variation 13.4 % (11.5-14.5); RDW Standard Deviation 43.3 fL (36.4-46.3); White Blood Count 21.42 K/uL (4.8-10.8)
--- NOTE | 2020-06-28 06:54 | Obstetrical Progress Note ---
Date of Service June 28, 2020 Assessment & Plan (1) Previous delivery affecting , antepartum: - discussed surgery and findings with patient - will begin ambulating later in the day - H/H stable - routine care Subjective Voiding: kearney catheter in place Diet Tolerance:: clear liquids Feeding Type:: breast feeding Physical Exam Constitutional WD/WN, vitals as above Respiratory normal respiratory effort, lungs clear to auscultation Cardiovascular RRR, no murmur, no edema Gastrointestinal (Abdomen) Dressing dry, appropriate post-op tenderness Musculoskeletal (-) deep calf tenderness Results & Data ([facility]) Vital Signs (Past 12 Hours) Vital Signs Temp Pulse Pulse Resp BP BP Pulse Ox 06/28/20 06:34 18 97 06/28/20 05:34 18 98 06/28/20 04:30 97.7 F 88 18 121/81 99 06/28/20 03:30 18 99 06/28/20 02:28 18 100 06/28/20 01:37 18 99 06/28/20 00:50 95.7 F L 85 18 135/77 100 06/28/20 00:36 73 100 06/28/20 00:34 79 127/92 06/28/20 00:31 70 100 06/28/20 00:26 69 100 06/28/20 00:24 72 123/81 06/28/20 00:21 79 100 06/28/20 00:16 72 100 06/28/20 00:15 20 06/28/20 00:14 68 126/86 06/28/20 00:11 67 100 06/28/20 00:06 73 100 06/28/20 00:04 61 124/82 06/28/20 00:01 80 100 06/27/20 23:56 66 100 06/27/20 23:54 68 124/82 06/27/20 23:51 70 100 06/27/20 23:46 72 100 06/27/20 23:45 70 20 136/76 06/27/20 23:41 66 100 06/27/20 23:36 69 100 06/27/20 23:34 64 117/81 06/27/20 23:31 65 100 06/27/20 23:26 64 100 06/27/20 23:25 67 118/81 06/27/20 23:21 66 100 06/27/20 23:16 82 100 06/27/20 23:15 20 06/27/20 23:14 81 119/70 06/27/20 23:11 80 100 06/27/20 23:06 74 100 06/27/20 23:05 20 06/27/20 23:04 74 122/80 06/27/20 23:01 85 100 06/27/20 22:56 84 100 06/27/20 22:55 20 06/27/20 22:54 80 121/77 06/27/20 22:51 76 100 06/27/20 22:46 90 100 06/27/20 22:45 90 20 100 06/27/20 22:44 83 121/73 06/27/20 22:41 79 100 06/27/20 22:37 83 121/65 06/27/20 22:36 82 100 06/27/20 22:35 79 20 100 06/27/20 22:31 77 100 06/27/20 22:30 18 06/27/20 22:26 84 121/61 100 06/27/20 22:25 79 20 100 06/27/20 22:21 96 H 100 06/27/20 22:17 99 H 124/63 06/27/20 22:16 101 H 100 06/27/20 22:15 97.2 F L 20 06/27/20 19:39 120 H 125/82 06/27/20 19:36 98.2 F 20 06/27/20 19:34 98.2 F 20
[2020-06-28 07:09] LABS: Basophils # (auto) 0.03 K/uL (0-0.2); Basophils % (auto) 0.1 %; Eosinophils # (auto) 0.02 K/uL (0-0.5); Eosinophils % (auto) 0.1 %; Immature Granulocytes # (auto) 0.08 K/uL (0.00-0.02); Immature Granulocytes % (auto) 0.4 %; Lymphocytes # (auto) 3.05 K/uL (1.2-3.4); Lymphocytes % (auto) 14.2 %; Monocytes # (auto) 1.52 K/uL (0.11-0.59); Monocytes % (auto) 7.1 %; Neutrophils # (auto) 16.72 K/uL (1.4-6.5); Neutrophils % (auto) 78.1 %
[2020-06-28] MEDS: FERROUS SULFATE 325 MG TAB PO SCH (08:28)
[2020-06-28] MEDS: PRENATAL VITAMIN 1 TAB PO SCH (08:28)
[2020-06-28] MEDS: SIMETHICONE 80 MG CHEW PO SCH ×4 (08:29→20:16)
[2020-06-28] MEDS: DOCUSATE SODIUM 100 MG CAP PO SCH ×2 (15:52→20:17)
[2020-06-28] MEDS ORDERED: DC INTRASPINAL MORPHINE SCH (22:29)
[2020-06-28] MEDS ORDERED: oxyCODONE/ACETAMINOPHEN 5mg/325mg TAB PO PRN (22:30)
[2020-06-28] MEDS ORDERED: KETOROLAC 30 MG/ML VIAL IV PRN (22:30)
[2020-06-28] MEDS ORDERED: diphenhydrAMINE 50 MG/ML VIAL IV PRN (22:30)
[2020-06-28] MEDS ORDERED: ONDANSETRON INJ 2 MG/ML 2 ML VIAL IV PRN (22:30)
[2020-06-28] MEDS ORDERED: diphenhydrAMINE Capsule 25 MG CAP PO PRN (22:30)
[2020-06-29 06:28] LABS: Hematocrit (blood only) 30.2 % (37-47); Hemoglobin 9.9 g/dL (12.0-16.0)
[2020-06-29] MEDS: LEVOTHYROXINE SODIUM 112 MCG TABLET PO SCH (07:14)
--- NOTE | 2020-06-29 07:33 | Obstetrical Progress Note ---
Date of Service June 29, 2020 Assessment & Plan (1) S/P : 30 y/o POD2 s/p rLTCS/BTL Doing well, meeting all pp milestones. H/H stable this morning. Stable for discharge today Subjective Ambulation: ambulating normally Voiding: no voiding problems Passing Gas:: Yes Diet Tolerance:: regular diet Lochia:: Small Feeding Type:: breast feeding Pain well managed with medication Review of Systems Denies fevers, chills, n/v, FAUST, CP, SOB Physical Exam Constitutional WD/WN, vitals as above no acute distress Respiratory normal respiratory effort, lungs clear to auscultation Cardiovascular RRR, no murmur, no edema Gastrointestinal (Abdomen) Inspection/Auscultation: + abdominal surgical scar (c/d/i) Percussion/Palpation: abdomen soft; abdomen nontender fundus firm at umbilicus and NT Musculoskeletal BLE symmetric, nonerythematous, nontender Results & Data ([facility]) Vital Signs (Past 12 Hours) Vital Signs Temp Pulse Resp BP Pulse Ox 06/28/20 23:20 98.1 F 92 H 18 112/68 97 06/28/20 21:30 18 100 06/28/20 20:30 18 100 06/28/20 19:30 98.1 F 100 H 18 123/79 100
[2020-06-29] MEDS: SIMETHICONE 80 MG CHEW PO SCH ×2 (08:07→12:15)
[2020-06-29] MEDS: FERROUS SULFATE 325 MG TAB PO SCH (08:08)
[2020-06-29] MEDS: DOCUSATE SODIUM 100 MG CAP PO SCH (08:08)
[2020-06-29] MEDS: PRENATAL VITAMIN 1 TAB PO SCH (08:08)
[2020-06-29] MEDS ORDERED: bisacodyL 10 MG SUPP PR PRN (22:12)
--- NOTE | 2020-06-30 19:47 | Discharge Summary ---
Date of Service June 30, 2020 Admission HPI Per Admitting Provider The patient is a 30-year-old 2 para 1 with an EDC of 04 July at 39 weeks gestational age who presented to labor and delivery with spontaneous rupture membranes. Patient states that she has been having contractions for the last 24 hours. They have been increasing in intensity. Approximately 2 hours the patient felt pressure and had spontaneous rupture of clear fluids. The patient had been scheduled for repeat section next week. Her for section was for failure to progressed. 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 The patient also has requested permanent surgical sterilization. She has been counseled during the about the reversible nature of this. The remainder of her course has been unremarkable. Her blood type is A+, antibody negative, rubella immune, hepatitis B negative, she had a normal 1 hour Glucola x2, and a negative third trimester beta strep culture. Discharge Data Consultations 06/27/20 20:05 Consult Anesthesiology Stat Procedures Performed Operation Date: 06/27/20 20:00 Actual Procedures p Section in LD low uterine transverse incision for a live male child (Not Applicable) - Shreyas Haider Jr, MD, [facility] Post Tubal Ligation Labor & Deliv(Bilateral) - Shreyas Haider Jr, MD, [facility] Course (1) Previous delivery affecting , antepartum: The patient was deemed to be in active labor. Anesthesia and Pediatrics were notified. Risks, benefits and alternatives to the surgery were discussed and the permit was signed. The patient was taken to the operating room. Viable male with Apgars of 8 and 9 and weight of 8 pounds 3 ounces. Normal- appearing tubes and ovaries bilaterally. Bilateral segment of fallopian tube removed. Post operatively the patient did well. Bob catheter was removed and the patient ambulated without difficulty. On POD #2 the patient was tolerating a regular diet and requested d/c. Instructions and Rx sent, pt will f/u for post- operative check, but she was instructed to call with any questions, problems or difficulties. Coding Level of Care Code None Diagnoses Previous delivery affecting , antepartum O34.219
== END 2020-06-29 12:30 | disposition home or self-care (01) | DRG 785 ==
LOC: 4S1 19:24 → OPB 19:24 → 4S1 20:05 → 4S2 06-28 01:02
PROC: M.PPTLD (2020-06-27 20:00)